=== PATIENT | female | born 1980 | race Caucasian/White ===

== ENCOUNTER 2016-09-01 19:19 | Outpatient (CLI) | payer MEDICAID ==
[~2016-09-01] VITALS: Ht 160 cm; Wt 77.7 kg
[~2016-09-01 19:19] MED LIST: FERR27TA PO; PREN1TAB49 PO
--- NOTE | 2016-09-01 20:04 | RADRPT ---
PROCEDURE: US OB. CLINICAL INDICATION: Size and dates TECHNIQUE: Multiple sonographic images of the pelvis and gravid uterus were obtained. The images were reviewed on a PACS workstation. COMPARISON: No prior studies are available for comparison. FINDINGS: There is a single viable intrauterine gestation. Cardiac activity is present with 171 beats per min deyanira. There is a vertex presentation. The placenta is anterior. There is no evidence for an abruption or placenta previa. Measurements were made in order to determine age. The results are as follows: BPD =8.9 cm HC =32.1 cm AC =33.5 cm FL =7.0 cm Estimated gestational age of approximately 36 weeks and 3 days based on ultrasound measurements. Clinical age: 35 weeks and 4 days. The estimated date of delivery is 09/26/2016, based on ultrasound measurements. The EFW = 3019 g, 80%, based on LMP age. RPTAT: AA IMPRESSION: Single viable intrauterine gestation of approximately 36 weeks and 3 days based on ultrasound measu rements. .Edison Monge MD, Date Time Electronically viewed and signed by .Edison Monge MD, on 09/01/2016 20:04 .S/
--- NOTE | 2016-09-01 20:05 | RADRPT ---
PROCEDURE: US OB biophysical profile. CLINICAL INDICATION: decreased movements TECHNIQUE: Multiple sonographic images of the pelvis were obtained. The images were reviewed on a PACS workstation. COMPARISON: No prior studies are available for comparison. FINDINGS: There is a single viable intrauterine gestation. Cardiac activity is present with 163 beats per min deyanira. There is a vertex presentation. The placenta is anterior. There is no evidence of placental abruption. There is a normal amount of amniotic fluid with an JOSE = 8.9 cm. Biophysical profile: movement 2/2 tone 2/2. breathing 2/2 JOSE 2/2 Total 09/30 RPTAT: AA . IMPRESSION: Normal biophysical profile. . .Edison Monge MD, MD Date Time Electronically viewed and signed by .Edison Monge MD, MD on 09/01/2016 20:04 .S/
[2016-09-01 20:28] VITALS: Ht 160 cm; Wt 77.7 kg
[2016-09-01 21:01] LABS: ADD UMIC YES; UR ASCORBIC ACID NEGATIVE (NEGATIVE); UR BACTERIA FEW /HPF (NONE SEEN); UR BILIRUBIN (Dip) NEGATIVE (NEGATIVE); UR BLOOD (Dip) 2+ mg/dL (NEGATIVE); UR CLARITY CLEAR (CLEAR); UR COLOR YELLOW (YELLOW); UR GLUCOSE (Dip) 1+ mg/dL (NEGATIVE); UR KETONES (Dip) NEGATIVE (NEGATIVE); UR LEUKOCYTE ESTERASE (Dip) NEGATIVE Leu/ul (NEGATIVE); UR MUCUS FEW /HPF (NONE SEEN); UR NITRITE (Dip) NEGATIVE (NEGATIVE); UR RBC 6 /HPF (0-5); UR SPECIFIC GRAVITY (Dip) 1.016 (1.003-1.030); UR TOTAL PROTEIN (Dip) 2+ mg/dl (NEGATIVE); UR UROBILINOGEN (Dip) NEGATIVE (NEGATIVE)
[2016-09-01 22:08] LABS: ADD SCAN DIFF NO
[2016-09-01 22:11] LABS: BASOPHILS % 0.1 % (0.0-2.0); EOSINOPHILS # 0.1 10^3/ul (0.0-0.5); EOSINOPHILS % 1.4 % (0.0-7.0); HEMATOCRIT 28.8 % (37.0-47.0); HEMOGLOBIN 9.9 g/dl (12.0-16.0); LYMPHOCYTES # 1.5 10^3/ul (0.8-2.9); MEAN CORPUSCULAR HGB CONC 34.4 g/dl (32.0-37.0); MEAN PLATELET VOLUME 10.9 fl (7.4-10.4); MONOCYTE # 0.5 10^3/ul (0.3-0.9); MONOCYTES % 7.6 % (0.0-11.0); NEUTROPHIL # 4.7 10^3/ul (1.6-7.5); PLATELET COUNT 192 10^3/UL (140-415); RED BLOOD COUNT 2.91 10^6/ul (4.20-5.40); RED CELL DISTRIBUTION WIDTH 13.8 % (11.5-14.5)
[2016-09-01 22:28] LABS: INR 0.96; PARTIAL THROMBOPLASTIN TIME 26.2 Sec (25.0-35.0); PROTIME 12.8 Sec (12.2-14.2)
[2016-09-01 22:51] LABS: ALBUMIN 3.5 g/dl (3.3-4.9); ALBUMIN/GLOBULIN RATIO 1.16; BILIRUBIN,INDIRECT 0.1 mg/dl (0-1.1); BILIRUBIN,TOTAL 0.1 mg/dl (0.2-1.3); CALCIUM 9.3 mg/dl (8.4-10.2); CREATININE 0.48 mg/dl (0.44-1.00); POTASSIUM 3.3 mmol/L (3.5-5.1); TOTAL PROTEIN 6.5 g/dl (6.1-8.1); URIC ACID 2.7 mg/dl (3.1-7.9)
--- NOTE | 2016-09-02 06:20 | TRIAGE ---
OB Triage Datetime Report Generated by CPN: 09/02/2016 06:19 Datetime: 09/02/2016 01:00 Labor Evaluation Frequency: IRREGULAR Monitor Mode: External Duration (sec)2399: 60 Quality: Mild Pattern: Normal: <= 5 Contractions in 10 Minutes Resting Tone [place]: Relaxed Heart Rate FHR Baseline Rate: 145 Monitor Mode: External US FHR Baseline Changes: No Baseline Change Variability: Moderate 6-25 bpm Accelerations: 15X15 Decelerations: None Category: Category I Datetime: 09/02/2016 00:00 Labor Evaluation Frequency: 2/HR Monitor Mode: External Duration (sec)2399: 100 Quality: Mild Pattern: Normal: <= 5 Contractions in 10 Minutes Resting Tone [place]: Relaxed Heart Rate FHR Baseline Rate: 155 Monitor Mode: External US FHR Baseline Changes: No Baseline Change Variability: Moderate 6-25 bpm Accelerations: 15X15 Decelerations: None Category: Category I Datetime: 09/01/2016 23:00 Labor Evaluation Frequency: 1 Monitor Mode: External Duration (sec)2399: 60 Quality: Mild Pattern: Normal: <= 5 Contractions in 10 Minutes Resting Tone [place]: Relaxed Heart Rate FHR Baseline Rate: 155 Monitor Mode: External US FHR Baseline Changes: No Baseline Change Variability: Moderate 6-25 bpm Accelerations: 15X15 Decelerations: None Category: Category I Datetime: 09/01/2016 22:00 Labor Evaluation Frequency: 1 Monitor Mode: External Duration (sec)2399: 60 Quality: Mild Pattern: Normal: <= 5 Contractions in 10 Minutes Resting Tone [place]: Relaxed Heart Rate FHR Baseline Rate: 155 Monitor Mode: External US FHR Baseline Changes: No Baseline Change Variability: Moderate 6-25 bpm Accelerations: 15X15 Decelerations: None Category: Category I Datetime: 09/01/2016 21:00 Labor Evaluation Frequency: 0 Monitor Mode: External Heart Rate FHR Baseline Rate: 155 Monitor Mode: External US FHR Baseline Changes: No Baseline Change Variability: Moderate 6-25 bpm Accelerations: 15X15 Decelerations: None Category: Category I Datetime: 09/01/2016 19:36 Stage of : OB Triage Assessment Type: Triage Time of Arrival: 09/01/2016 19:17 Arrived By: Wheelchair Arrived From: Home Chief Complaint: [facility] LABS Movement: Present Contractions: Denies/Absent Rupture of Membranes: Denies Vaginal Bleeding: None Vaginal Discharge: Denies Recent Sexual Intercouse: Denies Abdominal Trauma: Not Applicable Time Provider Notified: 09/02/2016 20:47 Provider Notified: DR DOSHI Initial Plan: CALL HEATHER FISCHER Maternal Assessment Level of Consciousness: Fully Conscious DTR's/Clonus: DTRs 2+; No Clonus Headache: Denies Blurred Vision: No Respiratory Effort: Unlabored; Regular Rhythm; Equal Expansion Breath Sounds, Left: Clear and Equal Breath Sounds, Right: Clear and Equal Nausea/Vomiting: Denies RUQ Epigastric Pain: Denies Lower Extremities Edema: None Degree: None Upper Extremities Edema: None Degree: None Facial Edema: None Temperature Route: Oral Fall Risk Assessment History of Falling: (0) No Secondary Diagnosis: (0) No Ambulatory Aid: (0) Bedrest/Nurse Assist IV Therapy: (0) No Gait: (0) Normal/Bedrest/Immobile Mental Status: (0) Oriented to Own Ability Fall Score: 0 Fall Risk Score Definition: No Risk: No action required Monitor Mode: External Monitor Mode: External US
--- NOTE | 2016-09-09 03:45 | HP ---
DATE OF ADMISSION: 09/01/2016 DATE OF DICTATION: 09/06/2016- Late entry note. CHIEF COMPLAINT: Follow up lab. She was seen in clinic today and urine protein was 3+ positive. Sent to hospital for further evaluation. HISTORY OF THE PRESENT ILLNESS: The patient is a 35-year-old, , para V, 0, 0, V with single intrauterine at 35 weeks and 4 days, seen in clinic today, with 3+ urine protein, and patient was sent to the hospital for further evaluation. She states good movement. She denies nausea, vomiting, shortness of breath, chest pain, headache, blurry vision, double vision, urinary or GI symptoms, vaginal bleeding or leakage of fluid. PHYSICAL EXAMINATION: GENERAL: The patient is comfortable in no acute distress. She has appropriate mood and affect. VITAL SIGNS: Blood pressure 110-115/70-72, pulse rate 80, respiratory rate 18, temperature 98.2. HEART: Regular rhythm and rate. No murmur. LUNGS: Clear to auscultation bilaterally. ABDOMEN: Soft. Nontender. Uterine fundal height is 36 weeks. heart rate 140 BPM regular. Moderate variability with acceleration with deceleration. Strong contractions none. FLANK: No CVA tenderness bilateral. EXTREMITIES: Mild edema. No varicose veins, thigh or calf tenderness bilateral. Homans' sign is negative. ASSESSMENT AND PLAN: The patient is a 35-year-old, , para V, 0, 0, V with single intrauterine at 35 weeks and 4 days, with 3+ urine protein in office. CBC, CMP, uric acid were performed which were normal. UA with 2+ urine protein. All of her blood pressures during 3 hours of observation were normal. Ultrasound performed with biophysical profile of 8. Signs and symptoms of preeclampsia, labor, kick count was discussed with the patient. She expressed understanding, all of her questions were answered. She is discharged home in stable condition. Follow up with her primary [employer]ATOR in 2 days for blood pressure monitoring. A 24 hour urine protein ordered. Dictated By: Osman Ricketts MD /[email or web address] /Document#: [id number] MARIA ANTONIA
== END 2016-09-02 00:40 | disposition home or self-care (01) ==
LOC: OBT 19:19 → L-D 19:20 → OBT 09-02 00:40
PROVIDERS: ATTEND Obstetrics & Gynecology
DX: O12.13 Gestational proteinuria, third trimester (principal); O09.523 Supervision of elderly multigravida, third trimester; Z3A.35 35 weeks gestation of pregnancy
CPT/HCPCS: 76815; 76818; 80053; 81001; 84560; 85025; 85384; 85610; 85730; Z7500; G0463